=== PATIENT | female | born 1970 | race Caucasian/White ===

== ENCOUNTER 2016-08-10 10:16 | Emergency (ER) | payer OTHER ==
--- NOTE | 2016-08-10 10:37 | CPEKG ---
Heart Rate: 77 RR Interval: 779 P-R Interval: 132 QRSD Interval: 80 QT Interval: 376 QTC Interval: 426 P [place]: 66 QRS [place]: 62 T Wave [place]: 24 EKG Severity - NORMAL ECG - EKG Impression: SINUS RHYTHM Electronically Signed By: Martin Peñaloza 10-Aug-2016 16:02:26
--- NOTE | 2016-08-10 11:08 | EDPHY ---
H & P Stated Complaint: got up at 0430/abd cramping/fainted on toilet Source: Patient, Family - Personal History LMP (Females 10-55): 1-7 Days Ago Current Tetanus/Diphtheria Vaccine: Yes - Medical/Surgical History Hx Asthma: No Hx Chronic Respiratory Disease: No Hx Diabetes: No Hx Cardiac Disease: No Hx Renal Disease: No Hx Cirrhosis: No Hx Alcoholism: No Hx HIV/AIDS: No Hx Splenectomy or Spleen Trauma: No Other PMH: denies - Social History Smoking Status: Never smoked Time Seen by Provider: 08/10/16 10:50 HPI/ROS: CHIEF COMPLAINT: Syncope HISTORY OF PRESENT ILLNESS: This is a 46-year-old female presenting to the emergency department for lightheadedness and passing out. Patient states she got up about 430 this morning noticed some minor leg cramping went to the bathroom he sat on the toilet trying to have a bowel movement felt a little lightheaded the next thing she remembers she was on the floor. states she passed out less than 30 seconds. Patient states she did have some loose bowels on Sunday after traveling from [place] but she was fine yesterday no abdominal cramping no difficulty urinating or diarrhea. When she did wake up this morning she did have some abdominal cramping. After regaining consciousness patient sat back on the toilet had 1-2 episodes of solid bowel movement but loose no nausea vomiting, but has since abdominal cramping with just feeling fatigue no nausea vomiting REVIEW OF SYSTEMS: Constitutional: No fever, no chills. Eyes: No discharge. No blurred vision ENT: No sore throat. Cardiovascular: No chest pain, no palpitations. Respiratory: No cough, no shortness of breath. Gastrointestinal: abdominal cramping, no vomiting, loose bowels. Genitourinary: No hematuria. Musculoskeletal: No back pain. Skin: No rashes. Neurological: No headache (Sisi Butler) - Physical Exam Exam: General Appearance: Alert, no distress. HEENT: Normocephalic atraumatic. PERRLA. Mucous membranes moist, no oral lesions lacerations noted Respiratory: There are no retractions, lungs are clear to auscultation. Cardiovascular: Regular rate and rhythm. Gastrointestinal: Abdomen is soft and nontender, no masses, bowel sounds normal. Neurological: No focal deficits. Answering questions appropriately All cranial nerves intact, ambulatory without gait disturbance Skin: Warm and dry, no rashes. Musculoskeletal: Vertebral cervical spine nontender on palpation full range of motion Extremities: symmetrical, full range of motion. Psychiatric: Patient is oriented X 3, acting appropriately (Sisi Butler) Constitutional: Initial Vital Signs Temperature (C) 36.6 C 08/10/16 10:19 Heart Rate 84 08/10/16 10:19 Respiratory Rate 20 08/10/16 10:19 Blood Pressure 142/91 H 08/10/16 10:19 O2 Sat (%) 98 08/10/16 10:19 O2 Delivery Mode Room Air Allergies/Adverse Reactions: Sulfa (Sulfonamide Antibiotics) Allergy (Verified 08/10/16 10:18) Home Medications: Medication Instructions Recorded Loestrin 21 1-20 Tablet 08/10/16 Medical Decision Making ED Course/Re-evaluation: Discussed ED plan of care: CBC, BMP, UA, normal saline for dehydration, EKG 12 lead sinus rhythm no ectopy 1200: Re-evaluation, nonlabored respiratory effort no nausea vomiting no lightheadedness, denies any abdominal pain. Patient states she is hungry and she would like to go home 1230: Discharge home---> stable, discussed discharge instructions with patient (LukeSisi) I did not see this patient while she was in the emergency department. However her care was discussed with the nurse practitioner while the patient was in the emergency department. I agree with treatment plan and management (Martin Peñaloza) Differential Diagnosis: Other differential diagnosis considered but not limited to electrolyte abnormalities, AMS, gastroenteritis (Sisi Butler) - Data Points Laboratory Results: Laboratory Results 08/10/16 10:37 08/10/16 10:37 Departure - Departure Disposition: Home, Routine, Self-Care Clinical Impression: Syncope Condition: Good Instructions: Syncope (ED), Lightheadedness (ED) Additional Instructions: 1. Rest, increase fluid intake. 2. Recommend following up with your primary care provider next week 3. If at any point time you have repeat symptoms of lightheadedness and passing out, nausea vomiting chest pain shortness of breath return to the ER Referrals: Suzanne Lutz MD [Primary Care Provider] - As per Instructions
[2016-08-10 11:17] LABS: % IMMATURE GRANULYOCYTES 0.2 % (0.0-1.1); ABSOLUTE IMMATURE GRANULOCYTES 0.02 10^3/uL (0.00-0.10); ADD DIFF? NO; ADD MORPH? NO; ADD SCAN? NO; ATYPICAL LYMPHOCYTE FLAG 0 (0-99); FRAGMENT RBC FLAG 0 (0-99); HEMATOCRIT 47.3 % (38.0-47.0); HEMOGLOBIN 16.5 g/dL (12.6-16.3); LEFT SHIFT FLG 0 (0-99); LIPEMIA HEMOLYSIS FLAG 90 (0-99); MEAN CELL HEMOGLOBIN 32.9 pg (27.9-34.1); MEAN CELL HEMOGLOBIN CONCENTR. 34.9 g/dL (32.4-36.7); MEAN CELL VOLUME 94.4 fL (81.5-99.8); MEAN PLATELET VOLUME 9.2 fL (8.7-11.7); PLATELET CLUMPS FLAG 0 (0-99); PLATELET COUNT 265 10^3/uL (150-400); RED BLOOD CELL COUNT 5.01 10^6/uL (4.18-5.33); RED CELL DISTRIBUTION WIDTH 11.7 % (11.5-15.2)
[2016-08-10 11:25] LABS: ANION GAP 15 mEq/L (8-16); CALCIUM 9.8 mg/dL (8.5-10.4); CARBON DIOXIDE 21 mEq/l (22-31); CHLORIDE 104 mEq/L (97-110); CREATININE 0.8 mg/dL (0.6-1.0); GLOMERULAR FILTRATION RATE > 60; GLUCOSE 120 mg/dL (70-100); POTASSIUM 4.4 mEq/L (3.5-5.2); SODIUM 140 mEq/L (134-144)
[2016-08-10 11:56] LABS: COLOR PALE YELLOW; LEUKOCYTE ESTERASE,URINE NEGATIVE (NEGATIVE); NITRITE,URINE NEGATIVE (NEGATIVE)
[2016-08-10 12:55] VITALS: BP 120/74; PULSE 70; RESP 14; TEMP 98.4; O2SAT 94
== END 2016-08-10 12:54 | disposition home or self-care (01) ==
DX: R55 Syncope and collapse (principal)